=== PATIENT | male | born 1955 | race African-American/Black ===

== ENCOUNTER 2018-05-09 06:00 | Inpatient (IN) ==
[2018-05-09] MEDS ORDERED: guaiFENesin/DM ER 600-30 MG TABLET PO PRN (09:46)
[2018-05-09] MEDS ORDERED: MORPHINE 4 MG/1 ML VIAL IV PRN (09:46)
[2018-05-09] MEDS ORDERED: diphenhydrAMINE CAP 25 MG CAPSULE PO PRN (09:46)
[2018-05-09] MEDS ORDERED: ACETAMINOPHEN 325 MG TABLET PO PRN ×2 (09:46→09:49)
[2018-05-09] MEDS ORDERED: MAGNESIUM SULF RIDER 4 GM in PREMIX 1 EACH IV PRN (09:49)
[2018-05-09] MEDS ORDERED: POTASSIUM CHLORIDE 20 MEQ TABLET PO PRN ×2 (09:49)
[2018-05-09] MEDS ORDERED: MAGNESIUM SULF RIDER 2 GM in PREMIX 1 EACH IV PRN (09:49)
[2018-05-09] MEDS ORDERED: ALUM/MAG/SIMETH/LIDO VISC 1:1 30 ML BOTTLE PO PRN (09:49)
[2018-05-09] MEDS ORDERED: NITROGLYCERIN SL 0.4 MG TABLET SL PRN (09:49)
[2018-05-09] MEDS ORDERED: INSULIN LISPRO 100 UNIT/ML SUBCUT ONE (09:49)
[2018-05-09 10:34] LABS: Basophils % 0.2 % (0.0-0.8); Eosinophils # 0.1 10*3/uL (0.0-0.87); Eosinophils % 0.7 % (0.00-10.9); Hematocrit 41.5 VOL% (42.0-52.0); Hemoglobin 13.7 GM/DL (14.0-18.0); Immature Granulocytes % 0.3 %; Immature Granulocytes Absolute 0.04 #; Lymphocytes # 2.1 10*3/uL (1.4-4.0); Lymphocytes % 16.6 % (21.2-54.2); Mean Corpuscular Hemoglobin 31 PG (27-34); Mean Corpuscular Volume 93.5 FL (87-102); Mean Platelet Volume 11.8 FL (9.6-12.0); Monocytes # 1.1 10*3/uL (0.11-0.8); Monocytes % 8.6 % (1.7-12.7); Neutrophils # 9.1 10*3/uL (1.4-7.4); Neutrophils % 73.6 % (38.7-73.9); Platelet Count 194 T/CUMM (130-400); Red Blood Count 4.44 MC/CUMM (3.8-5.5); Red Cell Distribution Width 13.5 % (9.3-17.3); White Blood Count 12.3 T/CUMM (4-12)
[2018-05-09 10:41] LABS: INR 0.9
[2018-05-09] MEDS ORDERED: ENOXAPARIN 100 MG/ML SYRINGE SUBCUT SCH (11:00)
[2018-05-09 11:02] LABS: Albumin 3.6 G/DL (3.4-5.0); Bilirubin,Total 0.4 MG/DL (0.2-1.0); Calcium 9.3 MG/DL (8.5-10.1); Potassium 3.9 MMOL/L (3.5-5.1)
[2018-05-09 11:03] LABS: Risk Ratio 4.13; Troponin I < 0.015 NG/ML (0.00-0.045)
[2018-05-09 11:09] LABS: Troponin I < 0.015 NG/ML (0.00-0.045)
[2018-05-09] MEDS: HYDROmorphone 2 MG/1 ML VIAL IV PRN ×2 (12:24→16:27)
[2018-05-09] MEDS: amLODIPine 10 MG TABLET PO SCH (12:30)
[2018-05-09] MEDS ORDERED: ALBUTEROL 2.5 MG/3 ML NEB RESP TX PRN (12:50)
[2018-05-09] MEDS ORDERED: GLUCAGON 1 MG VIAL IM PRN (12:59)
[2018-05-09] MEDS ORDERED: DEXTROSE 50% 25 GM/50 ML SYRINGE IV PRN (12:59)
[2018-05-09] MEDS ORDERED: cefTRIAXone 1,000 MG in SYRINGE 1 EACH IV SCH (13:00)
[2018-05-09] MEDS: ALBUTEROL/IPRATROPIUM 3 ML NEB RESP TX SCH ×2 (13:10→18:57)
[2018-05-09] MEDS ORDERED: ENOXAPARIN 40 MG/0.4 ML SYRINGE SUBCUT SCH (14:30)
[2018-05-09] MEDS: GABAPENTIN 300 MG CAPSULE PO SCH ×2 (16:21→21:17)
[2018-05-09] MEDS: FUROSEMIDE 40 MG/4 ML VIAL IV SCH (16:21)
[2018-05-09 18:08] LABS: Apearance,Urine CLEAR (Clear); Bilirubin,Urine Negative (Negative); Blood, Urine Negative (Negative); Glucose,Urine (UA) Negative (Negative); Hyaline Casts,Urine 1 /LPF (0-3); Ketones,Urine Negative (Negative); Nitrite,Urine Negative (Negative); Protein,Urine Negative; RBC,Urine 2 /HPF (0-4); Squamous Epithelial Cell,Urine Occasional /HPF (0-10); Urine Color Yellow (Yellow); Urine Specific Gravity > 1.060 (1.001-1.035); Urine Urobilinogen < 2.0 EU/DL (0.2-1.0)
[2018-05-09 20:29] LABS: Barbiturates Screen,Urine Negative (Negative); Benzodiazepines Screen,Urine Negative (Negative); Cannabinoid Screen,Urine Negative (Negative); Opiate Screen,Urine Positive (Negative); Phencyclidine Screen,Urine Negative (Negative)
[2018-05-09] MEDS ORDERED: ATORVASTATIN 40 MG TABLET PO SCH (21:00)
[2018-05-09] MEDS: CARVEDILOL 6.25 MG TABLET PO SCH (21:17)
[2018-05-09] MEDS: buPROPion 75 MG TABLET PO SCH (21:17)
[2018-05-10] MEDS: ALBUTEROL/IPRATROPIUM 3 ML NEB RESP TX SCH ×2 (03:23→07:09)
[2018-05-10 05:15] LABS: Basophils % 0.3 % (0.0-0.8); Eosinophils # 0.1 10*3/uL (0.0-0.87); Eosinophils % 1.1 % (0.00-10.9); Hematocrit 37.4 VOL% (42.0-52.0); Hemoglobin 12.1 GM/DL (14.0-18.0); Immature Granulocytes % 0.3 %; Immature Granulocytes Absolute 0.03 #; Lymphocytes % 19.3 % (21.2-54.2); Mean Corpuscular HGB Conc 32.4 GM/DL (32-36); Mean Corpuscular Hemoglobin 31 PG (27-34); Mean Corpuscular Volume 95.4 FL (87-102); Mean Platelet Volume 11.9 FL (9.6-12.0); Monocytes % 9.9 % (1.7-12.7); Neutrophils # 7.1 10*3/uL (1.4-7.4); Neutrophils % 69.1 % (38.7-73.9); Platelet Count 178 T/CUMM (130-400); Red Blood Count 3.92 MC/CUMM (3.8-5.5); Red Cell Distribution Width 13.5 % (9.3-17.3); White Blood Count 10.2 T/CUMM (4-12)
[2018-05-10 05:36] LABS: Alanine Aminotransferase 15 U/L (16-61); Albumin 3.2 G/DL (3.4-5.0); Alkaline Phosphatase 58 U/L (45-117); Aspartate Amino Transferase 15 U/L (0-37); Bilirubin,Total < 0.39 MG/DL (0.2-1.0); Blood Urea Nitrogen 20 MG/DL (7-18); Calcium 8.8 MG/DL (8.5-10.1); Glucose 114 MG/DL (74-106); Potassium 3.7 MMOL/L (3.5-5.1); Sodium 136 MMOL/L (136-145); Total Protein 7.1 G/DL (6.4-8.3)
[2018-05-10 05:38] LABS: Troponin I < 0.015 NG/ML (0.00-0.045)
[2018-05-10] MEDS ORDERED: INSULIN LISPRO 100 UNIT/ML SUBCUT SCH (07:30)
[2018-05-10] MEDS ORDERED: methylPREDNISolone SOD SUC 125 MG/2 ML VIAL IV SCH (07:30)
[2018-05-10 08:19] VITALS: BP 131/80
[2018-05-10] MEDS ORDERED: ASPIRIN EC 81 MG TABLET PO SCH (09:00)
[2018-05-10] MEDS ORDERED: LISINOPRIL/HCTZ 20-12.5 MG TABLET PO SCH (09:00)
[2018-05-10] MEDS ORDERED: PANTOPRAZOLE 40 MG TABLET PO SCH (09:00)
[2018-05-10] MEDS ORDERED: TAMSULOSIN 0.4 MG CAPSULE PO SCH (09:00)
[2018-05-10] MEDS: CARVEDILOL 6.25 MG TABLET PO SCH (09:56)
[2018-05-10] MEDS: FUROSEMIDE 40 MG/4 ML VIAL IV SCH (09:56)
[2018-05-10] MEDS: amLODIPine 10 MG TABLET PO SCH (09:56)
[2018-05-10] MEDS: buPROPion 75 MG TABLET PO SCH (09:56)
[2018-05-10] MEDS: GABAPENTIN 300 MG CAPSULE PO SCH (09:56)
[2018-05-12] MEDS ORDERED: AZITHROMYCIN 250 MG TABLET PO SCH (12:51)
== END 2018-05-10 10:40 | disposition home or self-care (01) | DRG 193 ==
LOC: SUATTDRO 07:19 → N.4E 07:19
PROVIDERS: ADMIT Emergency Medicine; ATTEND Hospitalist